=== PATIENT | male | born 1945 | race Caucasian/White ===

== ENCOUNTER → 2017-11-25 | Outpatient (REF) ==
[2017-11-25 15:21] LABS: PSA-TOTAL 2.68 ng/mL (0-4)
[2017-11-25 15:32] LABS: THYROID STIMULATING HORMONE 4.45 uIU/mL (0.465-4.680)
== END ==
LOC: ZLAB.WCH 14:21
PROVIDERS: Family Medicine
DX: Z12.5 Encounter for screening for malignant neoplasm of prostate (principal)
CPT/HCPCS: G0103

== ENCOUNTER → 2018-10-16 | Outpatient (CLI) | payer MEDICARE, OTHER | LOC: COL.VAS 11:01 | DX: M79.604 Pain in right leg (principal) ==

== ENCOUNTER → 2018-11-27 | Outpatient (REF) | LOC: ZLAB.WCH 17:38 | DX: Z01.89 Encounter for other specified special examinations (principal) ==

== ENCOUNTER → 2018-11-30 | Outpatient (REF) | LOC: ZLAB.WCH 16:01 | DX: Z01.89 Encounter for other specified special examinations (principal) ==

== ENCOUNTER 2019-04-12 16:39 | Outpatient (RCR) | payer MEDICARE, OTHER | END 2019-04-13 | disposition home or self-care (01) | LOC: COL.CR | DX: Z48.812 Encounter for surgical aftercare following surgery on the circulatory system (principal); Z98.61 Coronary angioplasty status ==

== ENCOUNTER 2019-04-19 15:04 | Outpatient (RCR) | payer MEDICARE, OTHER | END 2019-07-18 | disposition home or self-care (01) | LOC: COL.CR | DX: Z48.812 Encounter for surgical aftercare following surgery on the circulatory system (principal); Z95.5 Presence of coronary angioplasty implant and graft ==

== ENCOUNTER → 2019-04-20 | Outpatient (CLI) | payer MEDICARE, OTHER | LOC: COL.PUL 11:25 | DX: R06.00 Dyspnea, unspecified (principal) ==

== ENCOUNTER 2022-04-05 09:00 | Outpatient (RCR) | payer MEDICARE, OTHER | END 2022-04-07 | disposition home or self-care (01) | LOC: WSPT | DX: Z96.651 Presence of right artificial knee joint (principal) ==

== ENCOUNTER → 2022-05-08 | Outpatient (RCR) | payer MEDICARE, OTHER | END | disposition home or self-care (01) | LOC: WSPT | DX: Z96.651 Presence of right artificial knee joint (principal) ==

== ENCOUNTER 2022-06-27 09:00 | Outpatient (RCR) | payer MEDICARE, OTHER ==
[2022-07-05] MEDS ORDERED: NEURONTIN300 MG/CAP PO (09:18)
[2022-07-05] MEDS ORDERED: COZAAR100 MG PO (09:18)
[2022-07-05] MEDS ORDERED: FLOMAX 0.40.4 MG/CAP PO (09:18)
[2022-07-05] MEDS ORDERED: PLAVIX 75MG TAB75 MG PO ×2 (09:19→13:53)
[2022-07-05] MEDS ORDERED: PRIL40 PO (09:19)
[2022-07-05] MEDS ORDERED: LIPITOR 80MG80 MG PO (09:19)
[2022-07-05] MEDS ORDERED: TOPROL XL 50MG50 MG PO (09:20)
[2022-07-05] MEDS ORDERED: SYNTHROID0.05 MG/TA PO (09:20)
[2022-07-05] MEDS ORDERED: NORCO 325 MG-51 TAB PO (13:54)
== END 2022-07-08 | disposition home or self-care (01) ==
LOC: WSPT
DX: T84.82XA Fibrosis due to internal orthopedic prosthetic devices, implants and grafts, initial encounter (principal); Z96.651 Presence of right artificial knee joint

== ENCOUNTER 2022-07-05 09:07 | Day surgery (SDC) | payer MEDICARE, OTHER ==
[~2022-07-05] VITALS: Ht 185.4 cm; Wt 125.5 kg
[2022-07-05 09:09] VITALS: BP 161/81; PULSE 56; TEMP 97.4
[2022-07-05] MEDS ORDERED: NEURONTIN300 MG/CAP PO (09:18)
[2022-07-05] MEDS ORDERED: FLOMAX 0.40.4 MG/CAP PO (09:18)
[2022-07-05] MEDS ORDERED: COZAAR100 MG PO (09:18)
[2022-07-05] MEDS ORDERED: PLAVIX 75MG TAB75 MG PO ×2 (09:19→13:53)
[2022-07-05] MEDS ORDERED: PRIL40 PO (09:19)
[2022-07-05] MEDS ORDERED: LIPITOR 80MG80 MG PO (09:19)
[2022-07-05] MEDS ORDERED: TOPROL XL 50MG50 MG PO (09:20)
[2022-07-05] MEDS ORDERED: SYNTHROID0.05 MG/TA PO (09:20)
[2022-07-05] MEDS ORDERED: NORCO 325 MG-51 TAB PO (13:54)
[2022-07-05 14:20] VITALS: BP 117/62; PULSE 53; TEMP 97
--- NOTE | 2022-07-05 14:20 | NUR ---
The patient arrived back to [facility] from the recovery room at this time. The patient appears alert and oriented and denies any pain or nausea at this time. The patient has some water and ice chips from PACU and appears to be tolerating both well and denies wanting anything further at this time. Post operative vital signs were started at this time. The patient's is at his bedside. Call light is within reach. Dressing to right neck and back appear clean, dry and intact. Denies any further needs.
[2022-07-05 14:35] VITALS: BP 111/76; PULSE 48
--- NOTE | 2022-07-05 14:35 | NUR ---
The patient appears to be resting comfortably on the cart. Call light remains wtihin reach. continues to be at his bedside.
[2022-07-05 14:36] VITALS: TEMP 97.1
[2022-07-05 14:50] VITALS: BP 110/78; PULSE 48
--- NOTE | 2022-07-05 14:50 | NUR ---
Discharge instructions were reviewed with the patient and his at this time. They both verbalized understanding and have no questions for the nurse at this time. The patient's IV to his left hand was removed and a pressure dressing was applied. The patient ambulated to the bathroom with the stand by assistance of one nurse and appeared to tolerate the activity well. He voided without difficulty and is going to get dressed.
--- NOTE | 2022-07-05 15:10 | NUR ---
The patient was escorted out via wheelchair to a private vehicle by RANDEE Dalton. The patient's belongings and discharge were sent with him. The patietn's is present to drive him home.
== END 2022-07-05 15:10 | disposition home or self-care (01) ==
LOC: SDCO 09:07
DX: C43.59 Malignant melanoma of other part of trunk (principal); D36.0 Benign neoplasm of lymph nodes
CPT/HCPCS: A9520; J0690; J1885; J2405; J2704; J3010; J7120

== ENCOUNTER 2023-06-06 08:15 | Outpatient (RCR) | payer MEDICARE ==
[~2023-06-06 08:15] MED LIST: ASPIRIN E.C. 8181 MG PO; COZAAR100 MG PO; FLOMAX 0.40.4 MG/CAP PO; GLUCOSAMINE & C1 TAB PO; LIPITOR 80MG80 MG PO; METAMUCIL0.52 G1; NEURONTIN300 MG/CAP PO; NORCO 325 MG-51 TAB PO; OZEMPIC1 MG/0.71 SQ; PLAVIX 75MG TAB75 MG PO; PRIL40 PO; PROTONIX 40MG T40 MG PO; SYNTHROID0.05 MG/TA PO; TOPROL XL 50MG50 MG PO; VITAMIN B-6100 MG PO; ZOFRAN 4MG T4 MG/TAB PO
== END 2023-06-07 | disposition home or self-care (01) ==
LOC: WSPT
DX: M75.01 Adhesive capsulitis of right shoulder (principal)